=== PATIENT | female | born 1960 | race Hispanic/Latino ===

== ENCOUNTER 2017-02-24 19:30 | Observation (INO) | payer BC ==
[2017-02-24 19:40] VITALS: BMI 32.5
--- NOTE | 2017-02-24 19:52 | ED PDOC ---
Arrival/HPI - General Chief Complaint: Weakness/Neurological Deficit Time Seen by Provider: 02/24/17 19:32 Historian: Patient, Family - History of Present Illness Narrative History of Present Illness (Text): 02/24/17 19:48 A 56 year old female, whose past medical history includes cholecystectomy, brought into the emergency department by family for questionable slurring of speech 1 hour prior to arrival. According to family, patient was complaining of mild abdominal discomfort and non-bilious non-bloody vomiting earlier today. They report patient has been upset about a family member being recently diagnosed with cancer. Patient denies any fever, chills, nausea, vomiting, diarrhea, chest pain, shortness of breath, headache, dizziness, visual disturbance or any other complaints. PMD: Dr. Martin Time/Duration: 1 hour (STUDENT DEVELOPMENT ADVISOR) Context: Home Past Medical History - Provider Review Nursing Documentation Reviewed: Yes - Infectious Disease Hx of Infectious Diseases: None - Psychiatric Hx Substance Use: No Family/Social History - Physician Review Nursing Documentation Reviewed: Yes Family/Social History: No Known Family HX Smoking Status: Current Some Days Smoker Hx Alcohol Use: No Frequency of alcohol use: Socially Hx Substance Use: No Allergies/Home Meds Allergies/Adverse Reactions: Allergies No Known Allergies Allergy (Verified 02/24/17 19:41) Review of Systems - Physician Review All systems were reviewed & negative as marked: Yes - Review of Systems Constitutional: absent: Fevers, Night Sweats Eyes: absent: Vision Changes Respiratory: absent: SOB Cardiovascular: absent: Chest Pain Gastrointestinal: Abdominal Pain, Vomiting. absent: Diarrhea, Nausea Neurological: Speech Changes (questionable slurred speech). absent: Headache, Dizziness Physical Exam Vital Signs Temp Pulse Resp BP Pulse Ox 02/25/17 00:48 98.2 F 86 17 106/54 L 96 02/24/17 22:30 82 16 108/70 95 02/24/17 20:22 98.7 F 83 18 134/79 100 Appearance: Positive for: Well-Appearing, Non-Toxic, Comfortable Pain Distress: None Mental Status: Positive for: Alert and Oriented X 3, other (crying) Finger Stick Blood Glucose: 150 - Systems Exam Head: Present: Atraumatic, Normocephalic Pupils: Present: PERRL Extroacular Muscles: Present: EOMI Conjunctiva: Present: Normal Mouth: Present: Moist Mucous Membranes Neck: Present: Normal Range of Motion Respiratory/Chest: Present: Clear to Auscultation, Good Air Exchange. No: Respiratory Distress, Accessory Muscle Use Cardiovascular: Present: Regular Rate and Rhythm, Normal S1, S2. No: Murmurs Abdomen: Present: Normal Bowel Sounds. No: Tenderness, Distention, Peritoneal Signs Back: Present: Normal Inspection Upper Extremity: Present: Normal Inspection, Normal ROM (x4). No: Cyanosis, Edema Lower Extremity: Present: Normal Inspection, Normal ROM (x4). No: Edema Neurological: Present: GCS=15, CN II-XII Intact, Motor Func Grossly Intact, Normal Sensory Function, Normal Cerebellar Funct, Gait Normal, Memory Normal. No: Speech Normal (questionable dysarthria) Skin: Present: Warm, Dry, Normal Color. No: Rashes Psychiatric: Present: Alert, Oriented x 3, Normal Insight, Normal Concentration Medical Decision Making ED Course and Treatment: 02/24/17 19:48 Impression: A 56 year old female with questionable slurred speech. Patient notes mild abdominal discomfort and vomiting earlier today. Plan: -- Head CT -- Chest xray -- EKG -- Labs -- IV fluids -- Reassess and disposition Progress Notes: EKG shows NSR at 85 BPM with nonspecific T-wave changes. Interpreted by me. Chest xray read and interpreted by me, which shows no acute processes. 02/24/17 20:55 Case had been d/w neurologist .Pt. not a candidate for TPA (minor stroke risk and resolution of symptoms). 02/24/17 22:[address] Martin, who is aware and agrees with plan. Accepts pt in to his service. Pt will go to Telemetry observation for TIA. - Critical Care Critical Care Minutes: 30 minutes - Lab Interpretations Lab Results: 02/24/17 19:55 02/24/17 20:40 Lab Results 02/24/17 20:40: Sodium 137, Potassium 4.5, Chloride 101, Carbon Dioxide 25, Anion Gap 15, BUN 16, Creatinine 1.1, Est GFR ( Amer) > 60, Est GFR (Non- Af Amer) 51, Random Glucose 140 H, Calcium 10.5, Total Bilirubin 1.0, AST 28, ALT 50, Alkaline Phosphatase 116, Troponin I < 0.01, Total Protein 8.0, Albumin 4.9 H, Globulin 3.1, Albumin/Globulin Ratio 1.6, Triglycerides 210 H, Cholesterol 287 H, LDL Cholesterol Direct 216 H, HDL Cholesterol 60, Lipase 134 02/24/17 19:55: Blood Type O POSITIVE, Antibody Screen Negative, BBK History Checked No verified bt 02/24/17 19:55: PT 11.6, INR 1.06, APTT 28.7 02/24/17 19:55: WBC 18.2 H, RBC 5.61, Hgb 17.7 H, Hct 51.1 H, MCV 91.1, MCH 31.6 , MCHC 34.6, RDW 13.5, Plt Count 243, MPV 10.8, Gran % 91.4 H, Lymph % (Auto) 3.5 L, [place] % (Auto) 4.2, Eos % (Auto) 0.8 L, Baso % (Auto) 0.1, Gran # 16.67 H , Lymph # 0.6 L, [place] # 0.8 H, Eos # 0.2, Baso # 0.02, Neutrophils % (Manual) 94 H, Band Neutrophils % 0, Lymphocytes % (Manual) 1 L, Atypical Lymphs % 1 H, Monocytes % (Manual) 4 I have reviewed the lab results: Yes - RAD Interpretation Radiology Orders: 02/24/17 19:41 HEAD W/O (CODE STROKE) [CT] Stat CHEST PORTABLE [RAD] Stat 02/24/17 21:06 ABD & PELVIS IV CONTRAST ONLY [CT] Stat - Medication Orders Current Medication Orders: Sodium Chloride (Sodium Chloride 0.9%) 1,000 mls @ 100 mls/hr IV .Q10H [facility] Last Admin: 02/25/17 06:47 Dose: Ondansetron HCl (Zofran Inj) 4 mg IVP Q6 PRN PRN Reason: Nausea/Vomiting Last Admin: 02/24/17 23:18 Dose: 4 mg IVP Administration Document 02/24/17 23:18 IT (Rec: 02/24/17 23:18 IT [id number]) Charges for Administration # of IVP Administrations 1 Discontinued Medications Aspirin (Aspirin) 325 mg PO ONCE STA Stop: 02/24/17 20:31 Last Admin: 02/24/17 21:10 Dose: 325 mg Famotidine (Pepcid) 20 mg IVP STAT STA Stop: 02/24/17 20:01 Last Admin: 02/24/17 20:15 Dose: 20 mg IVP Administration Document 02/24/17 20:15 RD (Rec: 02/24/17 21:03 RD [id number]) Charges for Administration # of IVP Administrations 1 Ceftriaxone Sodium (Rocephin 1 Gram Ivpb) 1 gm in 100 mls @ 200 mls/hr IV ONCE STA PRN Reason: Protocol Stop: 02/24/17 23:45 Last Admin: 02/25/17 00:37 Dose: 200 mls/hr eMAR Start Stop Document 02/25/17 00:37 IT (Rec: 02/25/17 00:37 IT [id number]) Intravenous Solution Start Date 02/25/17 Start Time 00:37 Ondansetron HCl (Zofran Inj) 4 mg IVP ONCE ONE Stop: 02/24/17 20:01 Last Admin: 02/24/17 19:55 Dose: 4 mg IVP Administration Document 02/24/17 19:55 RD (Rec: 02/24/17 21:03 RD [id number]) Charges for Administration # of IVP Administrations 1 Ondansetron HCl (Zofran Inj) 4 mg IVP ONCE ONE Stop: 02/24/17 21:07 Last Admin: 02/24/17 21:11 Dose: 4 mg IVP Administration Document 02/24/17 21:11 RD (Rec: 02/24/17 21:11 RD [id number]) Charges for Administration # of IVP Administrations 1 NIHSS Scale ([place]) Time Performed: 19:38 - How Severe is the Stoke Baseline Level of Consciousness: 0=Alert LOC to Questions: 0=Both comments correct LOC to commands: 0=Obeys both correctly Best Gaze: 0=Normal Visual: 0=No visual loss Facial: 0=Normal Motor Arm - Left: 0=No drift Motor Arm - Right: 0=No drift Motor Leg - Left: 0=No drift Motor Leg - Right: 0=No drift Limb Ataxia: 0=Absent Sensory: 0=Normal Best Language: 0=No aphasia Dysarthia: 1=Mild to moderate slurring Extinction & Inattention (Neglect): 0=Normal, no object Score: 1 Risk Level: Minor Stroke Risk rTPA Inclusion/Exclusion - Refusal of Treatment Patient Refused Treatment: No - Inclusion Criteria for Altepase Patient is 18 years or Older: Yes The Clinical Diagnosis of Ischemic Stroke That is Causing a Potentially Disabling Neurological Deficit: No Time of Onset is Well Established to be Less Than 270 Minute Before Treatment Would Begin: Yes Risk/Benefit Discussed With Patient/Family Member Present: Yes - Exclusion Criteria for Altepase Uncontrolled Hypertension at Time of Treatment (Systolic BP above 185 or Diastolic BP above 110 mmHg): No Active Internal Bleeding: No Known Bleeding Diathesis Including but Not Limited to: Platelets Below 100,000/ mm,PTT Above 40 sec After Heparin Use, Current Use of Oral Anitcoagulant With INR Greater Than 1.7 or PT Greater Than 15 secs: No Evidence of an Intracranial Hemorrhage: No Evidence of Major Acute Infarct With Signs Greater Than 1/3 MCA Territory: No Suspicion of Subarachnoid Hemorrhage on Pretreatment Evaluation Even if CT Head Negative For Hemorrhage: No - Warning to TPA With Conditions Following Conditions Weighed Against Anticipated Benefit: Yes Condition: Stroke Serevity Too Mild, Rapid Improvement - Scribe Statement The provider has reviewed the documentation as recorded by the Earleneibviridiana Davis Provider Scribe Attestation: All medical record entries made by the Indra were at my direction and personally dictated by me. I have reviewed the chart and agree that the record accurately reflects my personal performance of the history, physical exam, medical decision making, and the department course for this patient. I have also personally directed, reviewed, and agree with the discharge instructions and disposition. Disposition/Present on Arrival - Present on Arrival Any Indicators Present on Arrival: No History of DVT/PE: No History of Uncontrolled Diabetes: No Urinary Catheter: No History of Decub. Ulcer: No History Surgical Site Infection Following: None - Disposition Have Diagnosis and Disposition been Completed?: Yes Diagnosis: TIA (transient ischemic attack) Disposition: HOSPITALIZED Disposition Time: 22:22 Patient Plan: Observation Patient Problems: Current Active Problems Problem Status Onset TIA (transient ischemic attack) Acute Condition: STABLE
--- NOTE | 2017-02-24 19:59 | CT ---
EXAM: CT Head Without Intravenous Contrast EXAM DATE/TIME: 02/24/2017 7:41 PM CLINICAL HISTORY: 56 years old, female; Signs and symptoms; Dizziness and speech disturbance; Slurred speech; Additional info: Code stroke TECHNIQUE: Axial computed tomography images of the head/brain without intravenous contrast. All CT scans at this facility use one or more dose reduction techniques, viz.: automated exposure control; ma/kV adjustment per patient size (including targeted exams where dose is matched to indication; i.e. head); or iterative reconstruction technique. COMPARISON: There are no prior studies for comparison. FINDINGS: Brain: Ventricles are normal in size and configuration. There is no midline shift. There are no intra-axial or extra-axial mass lesions or areas of hemorrhage. There are no abnormal fluid collections. Noe-white differentiation is maintained. Ventricles: See above. Bones: Cranial vault is intact. Soft tissues: unremarkable Sinuses: There is complete opacification of the right maxillary sinus. There is mucoperiosteal thickening in ethmoid air cells and left maxillary sinus. There is partial opacification left sphenoid frontal sinus. Ears and mastoids: Left middle ear and mastoid are unremarkable. There is partial opacification of the right mastoid. Right middle ear is unremarkable. Orbits: Orbital contents are unremarkable. IMPRESSION: No acute intracranial abnormality; sinus and mastoid disease If there is suspicion for acute infarct, MRI is advised
[2017-02-24] MEDS: Sodium Chloride 0.9% 1,000 ML IV SCH (20:00)
[2017-02-24 20:19] LABS: BASO # 0.02 K/mm3 (0.0-2.0); BASO % 0.1 % (0.0-3.0); EOS # 0.2 (0.0-0.7); EOS % 0.8 % (1.5-5.0); GRAN # 16.67 (1.4-6.5); GRAN % 91.4 % (50.0-68.0); HEMATOCRIT 51.1 % (36.0-48.0); LYMPH # 0.6 (1.2-3.4); LYMPH % 3.5 % (22.0-35.0); MEAN CELL VOLUME 91.1 fl (80.0-105.0); MEAN CORPUSCULAR HEMOGLOBIN 31.6 pg (25.0-35.0); MEAN CORPUSCULAR HGB CONC 34.6 g/dl (31.0-37.0); MEAN PLATELET VOLUME 10.8 fl (7.0-11.0); MONO # 0.8 (0.1-0.6); MONO % 4.2 % (1.0-6.0); PLATELET COUNT 243 10^3/uL (120.0-450.0); RED CELL DISTRIBUTION WIDTH 13.5 % (11.5-14.5); WHITE BLOOD COUNT 18.2 10^3/ul (4.5-11.0)
[2017-02-24 20:33] LABS: INR 1.06 (0.93-1.08); PARTIAL THROMBOPLASTIN TIME 28.7 Seconds (25.1-36.5)
[2017-02-24 21:01] LABS: ALKALINE PHOSPHATASE 116 U/L (38-126); ALT/SGPT 50 U/L (7-56); AST/SGOT 28 U/L (14-36); BLOOD UREA NITROGEN 16 mg/dL (7-21); CALCIUM 10.5 mg/dL (8.4-10.5); CARBON DIOXIDE 25 mmol/L (21-33); CHLORIDE 101 mmol/L (98-107); GFR AFRICAN-AMERICAN > 60; GLUCOSE,RANDOM 140 mg/dL (70-110); LIPASE 134 U/L (23-300); POTASSIUM 4.5 mmol/L (3.6-5.0); SODIUM 137 mmol/L (132-148)
[2017-02-24 21:02] LABS: ALB/GLOB RATIO 1.6 (1.1-1.8); CHOLESTEROL 287 mg/dL (130-200)
[2017-02-24 21:14] LABS: TROPONIN I < 0.01 ng/mL
[2017-02-24 21:17] LABS: ATYPICAL LYMPHOCYTE 1 % (0.0-0.0); BAND 0 % (0-2); NEUTROPHIL 94 % (50.0-70.0)
[2017-02-24] MEDS ORDERED: Iohexol 350 MG/100 ML VIAL ONE (22:22)
--- NOTE | 2017-02-24 23:14 | CT ---
EXAM: CT Abdomen and Pelvis With Intravenous Contrast EXAM DATE/TIME: 02/24/2017 9:06 PM CLINICAL HISTORY: 56 years old, female; Signs and symptoms; Nausea and other: Dizziness, generalized weakness; Additional info: Abdominal pain TECHNIQUE: Axial computed tomography images of the abdomen and pelvis with intravenous contrast. All CT scans at this facility use one or more dose reduction techniques, viz.: automated exposure control; ma/kV adjustment per patient size (including targeted exams where dose is matched to indication; i.e. head); or iterative reconstruction technique. Coronal and sagittal reformatted images were created and reviewed. CONTRAST: 94 mL of OMNI 350 administered intravenously. COMPARISON: No relevant prior studies available. FINDINGS: Lower thorax: Heart size is normal. Lung bases are clear. ABDOMEN: Liver: There is fatty infiltration of the liver. Gallbladder and bile ducts: Gallbladder is absent.Common duct is unremarkable. Pancreas: unremarkable Spleen: unremarkable Adrenals: unremarkable Kidneys and ureters: unremarkable Stomach and bowel: Stomach is partially distended with an air-fluid level. Rotation is normal. Proximal small bowel is mildly distended with fluid. There is mild wall and fold prominence. Prominence decreases distally. There is no obstruction. Ileocecal region is unremarkable.Appendix and terminal ileum are unremarkable. Right colon is partially distended with fluid. Left colon is incompletely distended which limits evaluation. Appendix: See stomach and bowel PELVIS: Bladder: unremarkable Reproductive: Uterus and adnexal structures are unremarkable. ABDOMEN and PELVIS: Intraperitoneal space: There is no free air or free fluid. Bones/joints: There are degenerative changes in the osseus structures. Soft tissues: unremarkable Vasculature: There are vascular calcifications. Lymph nodes: There is no pathologic adenopathy. IMPRESSION: Fatty liver, no acute solid visceral abnormality; cholecystectomy; fluid throughout small bowel and right colon suggesting ileus Additional findings as described above.
[2017-02-24] MEDS ORDERED: cefTRIAXone 1 gm 1 GM/100 ML BAG IV STA (23:16)
[2017-02-24 23:55] LABS: PH,URINE 5.5 (4.7-8.0); URINE BILIRUBIN NEGATIVE (NEGATIVE); URINE BLOOD TRACE-INTACT (NEGATIVE); URINE GLUCOSE (UA) NEGATIVE (NEGATIVE); URINE KETONE NEGATIVE (NEGATIVE); URINE LEUKOCYTE ESTERASE NEGATIVE Leu/uL (NEGATIVE); URINE PROTEIN NEGATIVE mg/dL (<30 mg/dL); URINE UROBILINOGEN 0.2 E.U./dL (<1 E.U./dL)
[2017-02-25 00:08] LABS: URINE APPEARANCE CLEAR (CLEAR); URINE COLOR YELLOW (YELLOW)
[2017-02-25 00:17] LABS: URINE BACTERIA SMALL (NEG); URINE EPITHELIAL CELLS 0 - 2 /hpf (0-5); URINE WBC 0 - 2 /hpf (0-6)
[2017-02-25] MEDS: Sodium Chloride 0.9% 1,000 ML IV SCH ×2 (01:02→06:47)
[2017-02-25 04:04] VITALS: RESP 18
[2017-02-25 06:45] VITALS: PULSE 83
[2017-02-25 06:47] VITALS: BP 94/63; TEMP 98.8; O2SAT 93
[2017-02-25 07:28] LABS: BASO # 0.02 K/mm3 (0.0-2.0); BASO % 0.2 % (0.0-3.0); EOS # 0.1 (0.0-0.7); GRAN # 9.28 (1.4-6.5); GRAN % 88.7 % (50.0-68.0); HEMATOCRIT 42.4 % (36.0-48.0); LYMPH # 0.6 (1.2-3.4); LYMPH % 5.4 % (22.0-35.0); MEAN CELL VOLUME 91.4 fl (80.0-105.0); MEAN CORPUSCULAR HEMOGLOBIN 30.2 pg (25.0-35.0); MEAN PLATELET VOLUME 10.3 fl (7.0-11.0); MONO # 0.5 (0.1-0.6); MONO % 4.7 % (1.0-6.0); RED CELL DISTRIBUTION WIDTH 13.8 % (11.5-14.5); WHITE BLOOD COUNT 10.5 10^3/ul (4.5-11.0)
[2017-02-25 07:47] LABS: ALB/GLOB RATIO 1.3 (1.1-1.8); ALKALINE PHOSPHATASE 79 U/L (38-126); ALT/SGPT 44 U/L (7-56); AST/SGOT 22 U/L (14-36); BILIRUBIN,TOTAL 0.7 mg/dL (0.2-1.3); BLOOD UREA NITROGEN 15 mg/dL (7-21); CALCIUM 8.7 mg/dL (8.4-10.5); CARBON DIOXIDE 25 mmol/L (21-33); CHLORIDE 106 mmol/L (98-107); CHOLESTEROL 213 mg/dL (130-200); GFR AFRICAN-AMERICAN > 60; GLUCOSE,RANDOM 112 mg/dL (70-110); POTASSIUM 4.2 mmol/L (3.6-5.0); SODIUM 138 mmol/L (132-148); TOTAL PROTEIN 6.4 g/dL (5.8-8.3)
--- NOTE | 2017-02-25 08:09 | RAD ---
HISTORY: code stroke COMPARISON: No prior. FINDINGS: LUNGS: No active pulmonary disease. PLEURA: No significant pleural effusion identified, no pneumothorax apparent. CARDIOVASCULAR: Normal. OSSEOUS STRUCTURES: No significant abnormalities. VISUALIZED UPPER ABDOMEN: Normal. OTHER FINDINGS: None. IMPRESSION: No active disease.
--- NOTE | 2017-02-25 10:50 | CP.PCM.CON ---
<Aleta Ferguson - Last Filed: 02/25/17 12:20> History of Present Illness - History of Present Illness History of Present Illness: PGY-2 Neurology progress note for Dr. Irvin's service 56 year old female with past medical history of cholecystectomy, brought into the emergency department by family for questionable slurring of speech. Patient states that she has been vomiting with non bloody yesetrday afternoon multiple times. She also reports fever and chills with general body aches. Shes states that after she vomited she begain to feel dizzy and her family told her she was slurring her words. It was reported that the patient has been upset about a family member being recently diagnosed with cancer. Patient denies any chest pain, shortness of breath, headache, visual disturbance or any other complaints. This morning patient is feeling better, she continues to report general fatigue but states that her nausea and vomiting has improved. PMH: bronctitis PSH: cholecystectomy social history:light smoker, social alcohol, deneis illicit drug use allergy: NKDA Review of Systems - Review of Systems All systems: reviewed and no additional remarkable complaints except (as stated in HPI) Past Patient History - Infectious Disease Hx of Infectious Diseases: None - Past Social History Smoking Status: Current Some Days Smoker - CARDIAC Hx Cardiac Disorders: Yes Hx Angina: No Hx Cardia Arrhythmia: No Hx Circulatory Problems: No Hx Congestive Heart Failure: No Hx Heart Murmur: No Hx Heart Transplant: No Hx Hypercholesterolemia: Yes Hx Hypertension: No Hx Internal Defibrillator: No Hx Mitral Valve Prolapse: No Hx Pacemaker: No Hx Peripheral Edema: No Hx Peripheral Vascular Disease: No - PULMONARY Hx Respiratory Disorders: Yes Hx Asthma: No Hx Bronchitis: Yes Hx Chronic Obstructive Pulmonary Disease (COPD): No Hx Emphysema: No Hx Pneumonia: No Hx Respiratory Aspiration: No Hx Respiratory Tract Infection: No Hx Sleep Apnea: No Hx Tuberculosis: No - NEUROLOGICAL Hx Neurological Disorder: Yes Hx Alzheimer's Disease: No HX Cerebrovascular Accident: No Hx Dementia: No Hx Dizziness: Yes Hx Meningitis: No Hx Migraine: No Hx Parkinson's Disease: No Hx Seizures: No Hx Transient Ischemic Attacks (TIA): No - HEENT Hx HEENT Problems: Yes (near sightedness) Hx Blind: No Hx Cataracts: No Hx Deafness: No Hx Difficulty Chewing: No Hx Epistaxis: No Hx Glaucoma: No Hx Macular Degeneration: No - RENAL Hx Chronic Kidney Disease: No Hx Dialysis: No Hx Kidney Stones: No Hx Neurogenic Bladder: No Hx Pyelonephritis: No Hx Renal (Kidney) Cancer: No Hx Renal Failure: No - ENDOCRINE/METABOLIC Hx Endocrine Disorders: No Hx Adrenal Cancer: No Hx Diabetes Insipidus: No Hx Diabetes Mellitus Type 1: No Hx Diabetes Mellitus Type 2: No Hx Hyperthyroidism: No Hx Hypothyroidism: No Hx Systemic Lupus Erythematosus: No - HEMATOLOGICAL/ONCOLOGICAL Hx Blood Disorders: No Hx AIDS: No Hx Anemia: No Hx Cancer: No Hx Chemotherapy: No Hx Cirrhosis: No Hx Hemophilia: No Hx Hepatitis A: No Hx Hepatitis B: No Hx Hepatitis C: No Hx Human Immunodeficiency Virus (HIV): No Hx Metastesis: No Hx Shingles: No Hx Sickle Cell Disease: No Hx Unexplained Bleeding: No - INTEGUMENTARY Hx Dermatological Problems: Yes Hx Basil Cell: No Hx Eczema: Yes Hx Melanoma: No Hx Psoriasis: No Hx Squamous Cell: No - MUSCULOSKELETAL/RHEUMATOLOGICAL Hx Musculoskeletal Disorders: No Hx Arthritis: No Hx Back Pain: No Hx Degenerative Joint Disease: No Hx Falls: No Hx Fractures: No Hx Gout: No Hx Herniated Disk: No Hx Myasthenia Gravis: No Hx Osteoarthritis: No Hx Osteomyelitis: No Hx Osteoporosis: No Hx Rhabdomyolysis: No Hx Spinal Stenosis: No Hx Unsteady Gait: No - GASTROINTESTINAL Hx Gastrointestinal Disorders: Yes Hx Colostomy: No Hx Crohn's Disease: No Hx Diverticulitis: No Hx Gall Bladder Disease: Yes Hx Gastroesophageal Reflux: Yes Hx Ileostomy: No Hx Liver Failure: No Hx Pancreatitis: No HX Swallowing Problems: No Hx Ulcer: No - GENITOURINARY/GYNECOLOGICAL Hx Genitourinary Disorders: No Hx Hematuria: No Hx Incontinence: No Hx Sexually Transmitted Disorders: No Hx Urinary Tract Infection: No - PSYCHIATRIC Hx Substance Use: No - SURGICAL HISTORY Hx Surgeries: Yes (plastic bone in right ear) Hx Amputation: No Hx Appendectomy: No Hx Cardiac Catheterization: No Hx Cholecystectomy: Yes Hx Coronary Stent: No Hx Gastric Bypass Surgery: No Hx Hysterectomy: No Hx Joint Replacement: No Hx Kidney Transplant: No Hx Liver Transplant: No Hx Mastectomy: No Hx Musculoskeletal Surgery: No Hx Open Heart Surgery: No Hx Orthopedic Surgery: No Hx Splenectomy: No Hx Valve Replacement: No Meds Allergies/Adverse Reactions: Allergies Allergy/AdvReac Type Severity Reaction Status Date / Time No Known Allergies Allergy Verified 12/13/17 19:41 - Medications Medications: Current Medications Aspirin (Aspirin) 81 mg PO DAILY BENITO Physical Exam - Constitutional Appears: Well, No Acute Distress - Head Exam Head Exam: ATRAUMATIC, NORMAL INSPECTION, NORMOCEPHALIC - Eye Exam Eye Exam: EOMI, Normal appearance, PERRL - ENT Exam ENT Exam: Mucous Membranes Dry - Respiratory Exam Respiratory Exam: Clear to Auscultation Bilateral, NORMAL BREATHING PATTERN. absent: Rhonchi, Wheezes, Respiratory Distress - Cardiovascular Exam Cardiovascular Exam: REGULAR RHYTHM, +S1, +S2. absent: Tachycardia, Systolic Murmur - Extremities Exam Extremities exam: Positive for: normal inspection. Negative for: pedal edema, tenderness - Neurological Exam Neurological exam: Alert, CN II-XII Intact, Oriented x3, Reflexes Normal - Expanded Neurological Exam Expanded Patient oriented to: person, place Speech: Fluid Speech Cranial nerves: EOM's Intact: Normal, Nystagmus: Normal, Tongue Deviation: Normal Cerebellar Function: Finger to Nose: Normal Upper motor neuron: Pronator Drift: Normal Neuro motor strength exam: Left Upper Extremity: 5, Right Upper Extremity: 5, Left Lower Extremity: 5, Right Lower Extremity: 5 Results - Vital Signs Recent Vital Signs: Last Vital Signs Temp 98.8 F 02/25/17 06:00 Pulse 83 02/25/17 06:00 Resp 18 02/25/17 06:00 BP 94/63 L 02/25/17 06:00 Pulse Ox 93 L 02/25/17 06:00 - Labs Result Diagrams: 02/25/17 06:55 02/25/17 06:55 Labs: Laboratory Results - last 24 hr 02/24/17 02/24/17 02/25/17 23:15 23:43 06:55 WBC 10.5 D RBC 4.64 Hgb 14.0 D Hct 42.4 MCV 91.4 MCH 30.2 MCHC 33.0 RDW 13.8 Plt Count 180 MPV 10.3 Gran % 88.7 H Lymph % (Auto) 5.4 L [place] % (Auto) 4.7 Eos % (Auto) 1.0 L Baso % (Auto) 0.2 Gran # 9.28 H Lymph # 0.6 L [place] # 0.5 Eos # 0.1 Baso # 0.02 Sodium Potassium Chloride Carbon Dioxide Anion Gap BUN Creatinine Est GFR ( Amer) Est GFR (Non-Af Amer) Random Glucose Calcium Total Bilirubin AST ALT Alkaline Phosphatase Total Protein Albumin Globulin Albumin/Globulin Ratio Triglycerides Cholesterol LDL Cholesterol Direct HDL Cholesterol Urine Color Yellow Urine Appearance Clear Urine pH 5.5 Ur Specific [place] 1.015 Urine Protein Negative Urine Glucose (UA) Negative Urine Ketones Negative Urine Blood Trace-intact H Urine Nitrate Negative Urine Bilirubin Negative Urine Urobilinogen 0.2 Ur Leukocyte Esterase Negative Urine RBC 1 - 3 Urine WBC 0 - 2 Ur Epithelial Cells 0 - 2 Urine Bacteria Small Blood Type Confirm O POSITIVE 02/25/17 06:55 WBC RBC Hgb Hct MCV MCH MCHC RDW Plt Count MPV Gran % Lymph % (Auto) [place] % (Auto) Eos % (Auto) Baso % (Auto) Gran # Lymph # [place] # Eos # Baso # Sodium 138 Potassium 4.2 Chloride 106 Carbon Dioxide 25 Anion Gap 12 BUN 15 Creatinine 1.0 Est GFR ( Amer) > 60 Est GFR (Non-Af Amer) 57 Random Glucose 112 H Calcium 8.7 Total Bilirubin 0.7 AST 22 ALT 44 Alkaline Phosphatase 79 Total Protein 6.4 Albumin 3.6 Globulin 2.8 Albumin/Globulin Ratio 1.3 Triglycerides 159 Cholesterol 213 H LDL Cholesterol Direct 148 H HDL Cholesterol 40 Urine Color Urine Appearance Urine pH Ur Specific [place] Urine Protein Urine Glucose (UA) Urine Ketones Urine Blood Urine Nitrate Urine Bilirubin Urine Urobilinogen Ur Leukocyte Esterase Urine RBC Urine WBC Ur Epithelial Cells Urine Bacteria Blood Type Confirm Assessment & Plan - Assessment and Plan (Free Text) Assessment: 56 year old female with past medical history of cholecystectomy, brought into the emergency department by family for questionable slurring of speech with dizziness most likely due to vasovagal - CT head negative - will hold off on MRI, patient has no focal neurological deficits most likely due to vasovagal after multiple episodes of vomiting - carotids US ordered - will get orthostatic vitals - asa 81 mg daily case reviewed and discussed with attending <Jamie Irvin - Last Filed: 02/25/17 17:59> Meds - Medications Medications: Current Medications Aspirin (Ecotrin) 81 mg PO DAILY BENITO Results - Vital Signs Recent Vital Signs: Last Vital Signs Temp 98.8 F 02/25/17 06:00 Pulse 83 02/25/17 06:00 Resp 18 02/25/17 06:00 BP 94/63 L 02/25/17 06:00 Pulse Ox 93 L 02/25/17 06:00 - Labs Result Diagrams: 02/25/17 06:55 02/25/17 06:55 Labs: Laboratory Results - last 24 hr 02/24/17 02/24/17 02/25/17 23:15 23:43 06:55 WBC 10.5 D RBC 4.64 Hgb 14.0 D Hct 42.4 MCV 91.4 MCH 30.2 MCHC 33.0 RDW 13.8 Plt Count 180 MPV 10.3 Gran % 88.7 H Lymph % (Auto) 5.4 L [place] % (Auto) 4.7 Eos % (Auto) 1.0 L Baso % (Auto) 0.2 Gran # 9.28 H Lymph # 0.6 L [place] # 0.5 Eos # 0.1 Baso # 0.02 Sodium Potassium Chloride Carbon Dioxide Anion Gap BUN Creatinine Est GFR ( Amer) Est GFR (Non-Af Amer) Random Glucose Calcium Total Bilirubin AST ALT Alkaline Phosphatase Total Protein Albumin Globulin Albumin/Globulin Ratio Triglycerides Cholesterol LDL Cholesterol Direct HDL Cholesterol Urine Color Yellow Urine Appearance Clear Urine pH 5.5 Ur Specific [place] 1.015 Urine Protein Negative Urine Glucose (UA) Negative Urine Ketones Negative Urine Blood Trace-intact H Urine Nitrate Negative Urine Bilirubin Negative Urine Urobilinogen 0.2 Ur Leukocyte Esterase Negative Urine RBC 1 - 3 Urine WBC 0 - 2 Ur Epithelial Cells 0 - 2 Urine Bacteria Small Blood Type Confirm O POSITIVE 02/25/17 06:55 WBC RBC Hgb Hct MCV MCH MCHC RDW Plt Count MPV Gran % Lymph % (Auto) [place] % (Auto) Eos % (Auto) Baso % (Auto) Gran # Lymph # [place] # Eos # Baso # Sodium 138 Potassium 4.2 Chloride 106 Carbon Dioxide 25 Anion Gap 12 BUN 15 Creatinine 1.0 Est GFR ( Amer) > 60 Est GFR (Non-Af Amer) 57 Random Glucose 112 H Calcium 8.7 Total Bilirubin 0.7 AST 22 ALT 44 Alkaline Phosphatase 79 Total Protein 6.4 Albumin 3.6 Globulin 2.8 Albumin/Globulin Ratio 1.3 Triglycerides 159 Cholesterol 213 H LDL Cholesterol Direct 148 H HDL Cholesterol 40 Urine Color Urine Appearance Urine pH Ur Specific [place] Urine Protein Urine Glucose (UA) Urine Ketones Urine Blood Urine Nitrate Urine Bilirubin Urine Urobilinogen Ur Leukocyte Esterase Urine RBC Urine WBC Ur Epithelial Cells Urine Bacteria Blood Type Confirm Attending/Attestation - Attestation I have personally seen and examined this patient.: Yes I have fully participated in the care of the patient.: Yes I have reviewed all pertinent clinical information: Yes
--- NOTE | 2017-02-25 12:37 | HP ---
HISTORY OF PRESENT ILLNESS: The patient is a 56 year old woman with no known medical problems who was brought to [facility] ED by her family for evaluation of questionable dysarthria. The patient reports that for the past 2 days she has been experiencing nausea, vomiting and diarrhea. She described the vomitus as nonbloody and nonbilious vomiting. She attributed her symptoms to a viral gastroenteritis and was managing at home with symptom control. On the day of presentation to the Emergency Department she was noted to be "in a fog" and reported rather significant lightheadedness and dizziness. When she was having a conversation with the family members she was reportedly noted to have slurred speech and, as such, was brought to the Emergency Department for evaluation. By the time of arrival to the ED she had spontaneous resolution of her symptoms and furthermore denied facial droop, weakness, paresthesias or paralysis associated with her symptoms. A CT of the head was unremarkable and she was subsequently admitted to the remote telemetry ricks for continued management of suspected TIA. PAST MEDICAL HISTORY: None. PAST SURGICAL HISTORY: Cholecystectomy. ALLERGIES: NO KNOWN DRUG ALLERGIES. MEDICATIONS: None. SOCIAL HISTORY: The patient reports an active [id number] smoking history and social alcohol use. She denies illicit drug abuse. FAMILY HISTORY: Noncontributory. REVIEW OF SYSTEMS: A 14-point review of systems is negative, except as per HPI. PHYSICAL EXAMINATION: VITAL SIGNS: Temperature 98.8, pulse 83, blood pressure 111/79, respiratory rate 18, oxygen saturation 96% on room air. GENERAL: No apparent distress. HEENT: PERRL, EOMI. No scleral icterus. No conjunctival pallor. NECK: Supple with full range of motion. No JVD. No bruits. LUNGS: Clear to auscultation. CARDIOVASCULAR: Regular rate and rhythm. Normal S1 and S2. ABDOMEN: Hyperactive bowel sounds, soft, nontender, nondistended. No rigidity. No tympany. EXTREMITIES: No edema. NEUROLOGIC: Awake, alert, and oriented x3. No focal motor deficits. Cranial nerves II through XII are intact. Motor 5/5 in all extremities. Sensation remains intact. LABORATORY DATA: WBC 10.5 with 88% neutrophils, hemoglobin 14, hematocrit 42, platelets 180. Chemistry reviewed and unremarkable. Cholesterol 213, triglycerides 159, LDL 148, HDL 40. IMAGING STUDIES: 1. Chest x-ray demonstrates no acute pathology. 2. CT of the head without contrast demonstrates no acute pathology. 3. CT of the abdomen/pelvis with IV contrast demonstrates fatty liver and fluid throughout the small bowel and right colon suggestive of ileus. ASSESSMENT: The patient is a 56 year old woman with no known medical problems who presented for evaluation of reported dysarthria with spontaneous resolution of symptoms by the time of arrival to the Emergency Department. PLAN: 1. Questionable dysarthria, rule out TIA. The initial CT of the head is unremarkable and the patient further denies any neurological deficits. There is a very low suspicion for any neurovascular incident in this patient. Input from Dr. Irvin noted. 2. Viral gastroenteritis. The patient reports significant improvement in her symptoms after administration of IV fluids and Zofran. She has not had any nausea, vomiting or diarrhea since admission. She was advised that upon discharge to eat bland food and if she is able to tolerate that then she may advance her diet gradually. 3. Disposition. The patient for discharge to home today. CODE STATUS: Full code. Vishnu Martin MD MTDAnca
--- NOTE | 2017-02-25 19:06 | CARD ---
APPROVED REPORT EKG Measurement Heart [id number] [id number] <Conclusion> Normal sinus rhythm RSR' or QR pattern in V1 suggests right ventricular conduction delay Nonspecific T wave abnormality Abnormal ECG
--- NOTE | 2017-03-01 18:56 | DS ---
ADMITTING DIAGNOSIS: Questionable dysarthria r/o TIA, viral gastroenteritis. DISCHARGE DIAGNOSIS: Viral gastroenteritis. SECONDARY DIAGNOSES: None. CONSULTATIONS: Dr. Irvin (Neurology). IMAGING STUDIES: 1. Chest X-ray which demonstrated no acute pathology. 2. CT of the head without contrast which demonstrated no acute pathology. 3. CT of the abdomen and pelvis with IV contrast which demonstrated fatty liver and fluid around the small bowel consistent with ileus. HISTORY OF PRESENT ILLNESS: The patient is a 56 year old woman with no known medical problems who presented for evaluation of sudden onset of questionable dysarthria. She reports that for the past 2 days she has been experiencing nausea, vomiting and diarrhea. She attributed her symptoms to a viral gastroenteritis and was managing at home with symptom control. On the day of presentation she reported being "in a fog" and reported lightheadedness and dizziness. When speaking to her family she reportedly had an episode of dysarthria and as such was brought to the ED for further evaluation. There were no neurological deficits associated with this episode. She furthermore specifically denied weakness, facial droop, paresthesias, headache or paralysis associated with her presenting symptoms. By the time of arrival to the ED she had resolution of her symptoms. A CT of the head was negative and she was admitted to the telemetry ricks for management of suspected TIA and viral gastroenteritis. HOSPITAL COURSE: Upon admission to the telemetry ricks she was maintained on IVF and Zofran. She had resolution of her symptoms and the following day was noted to tolerate her diet and was ambulating around the ricks with no neurologic deficits. She was also cleared by neurology as there was a very low clinical suspicion for a neurologic event and was deemed stable for discharge to home. CONDITION: Good, improved. DISPOSITION: Home. DISCHARGE MEDICATIONS: Zofran 4mg po q 6 hours as needed for nausea. DISCHARGE INSTRUCTIONS: She was advised that if she has any recurrence of her symptoms to present to her PMD or to the nearest ED immediately. FOLLOW-UP: She is to follow up with her PMD within 2 weeks of discharge. [facility]
== END 2017-02-25 10:07 | disposition home or self-care (01) ==
LOC: ED 19:30 → ERH 22:20 → 3RSO 02-25 00:33
PROVIDERS: ADMIT Student in an Organized Health Care Education/Training Program; ATTEND Student in an Organized Health Care Education/Training Program
DX: R42 Dizziness and giddiness (principal); A08.4 Viral intestinal infection, unspecified; E78.00 Pure hypercholesterolemia, unspecified; K21.9 Gastro-esophageal reflux disease without esophagitis; F17.210 Nicotine dependence, cigarettes, uncomplicated; Z90.49 Acquired absence of other specified parts of digestive tract
CPT/HCPCS: 36415; 70450; 71010; 74177; 80053; 80061; 81001; 83036; 83690; 84484; 85025; 85610; 85730; 86850; 86900; 87040; 87086; 87181; 93005; 96374; 96375; 96376; 99285; G0378; J2405; J7040; Q9967